=== PATIENT | male | born 1945 | race Caucasian/White ===

== ENCOUNTER 2017-11-26 07:13 | Day surgery (SDC) | payer OTHER ==
[2017-11-26] MEDS ORDERED: TETRACAINE 0.5% OPHTH 1 DOSE AFFEYE ONE ×4 (07:30→10:10)
[2017-11-26] MEDS ORDERED: VIGAMOX 0.5% OPHTH 1 DOSE AFFEYE ONE ×5 (07:35→10:25)
[2017-11-26] MEDS ORDERED: NS 500 ML IV 500 ML IV ONE (07:44)
[2017-11-26] MEDS ORDERED: PROLENSA OPHTH 1 DOSE AFFEYE ONE (07:46)
[2017-11-26] MEDS ORDERED: ALPHAGAN-P OPHTH 1 DOSE AFFEYE ONE (07:47)
[2017-11-26] MEDS ORDERED: AK-DILATE 2.5% OPHTH 1 DOSE OP ONE ×3 (07:48→07:50)
[2017-11-26] MEDS ORDERED: MYDRIACIL OPHTH 1 DOSE AFFEYE ONE ×3 (07:48→07:50)
[2017-11-26] MEDS ORDERED: CYCLOGYL 1% OPHTH 1 DOSE OP ONE ×3 (07:48→07:50)
[2017-11-26] MEDS ORDERED: BETADINE OPHTH SOLN 5% EACHEYE ONE (09:58)
[2017-11-26] MEDS ORDERED: XYLOCAINE-MPF 1% IJ ONE ×2 (10:07→10:10)
[2017-11-26] MEDS ORDERED: ADRENALINE CHL INJ IJ ONE ×2 (10:07→10:10)
[2017-11-26] MEDS ORDERED: DUOVISC IO ONE ×2 (10:09→10:10)
[2017-11-26] MEDS ORDERED: BSS OPHTH (PLAIN) 500 ML with VANCOMYCIN HCL 500 MG VIAL 25 MG, ADRENALINE CHL INJ 1 MG IR ONE ×3 (10:10)
[2017-11-26 10:50] VITALS: BP 180/83
[2017-11-26] MEDS ORDERED: VERSED ONE (15:35)
== END 2017-11-26 10:45 | disposition home or self-care (01) ==
LOC: SURG1 07:13
PROVIDERS: ATTEND Ophthalmology
PROC: 08DJ3ZZ Extraction of Right Lens, Percutaneous Approach (ICD-10-PCS; principal; 2017-11-26 09:45)
PROC: 08RJ3JZ Replacement of Right Lens with Synthetic Substitute, Percutaneous Approach (ICD-10-PCS; principal; 2017-11-26 09:45)
DX: H25.11 Age-related nuclear cataract, right eye (principal); H25.011 Cortical age-related cataract, right eye; H52.221 Regular astigmatism, right eye
CPT/HCPCS: 99100; A9270; A4217; J0170; J2250; J3370

== ENCOUNTER 2017-12-10 09:07 | Day surgery (SDC) | payer OTHER ==
[~2017-12-10 09:07] MED LIST: NS 1000 ML 1,000 ML ONE
[2017-12-10] MEDS ORDERED: TETRACAINE 0.5% OPHTH 1 DOSE AFFEYE ONE ×4 (09:15→12:57)
[2017-12-10] MEDS ORDERED: VIGAMOX 0.5% OPHTH 1 DOSE AFFEYE ONE ×5 (09:20→13:15)
[2017-12-10] MEDS ORDERED: PROLENSA OPHTH 1 DOSE AFFEYE ONE (09:31)
[2017-12-10] MEDS ORDERED: ALPHAGAN-P OPHTH 1 DOSE AFFEYE ONE (09:32)
[2017-12-10] MEDS ORDERED: CYCLOGYL 1% OPHTH 1 DOSE OP ONE ×3 (09:33→09:35)
[2017-12-10] MEDS ORDERED: MYDRIACIL OPHTH 1 DOSE AFFEYE ONE ×3 (09:33→09:35)
[2017-12-10] MEDS ORDERED: AK-DILATE 2.5% OPHTH 1 DOSE OP ONE ×3 (09:33→09:35)
[2017-12-10] MEDS ORDERED: XYLOCAINE-MPF 1% IJ ONE ×2 (12:47→12:57)
[2017-12-10] MEDS ORDERED: BETADINE OPHTH SOLN 5% EACHEYE ONE (12:47)
[2017-12-10] MEDS ORDERED: DUOVISC IO ONE ×2 (12:47→12:57)
[2017-12-10] MEDS ORDERED: ADRENALINE CHL INJ IJ ONE ×2 (12:47→12:57)
[2017-12-10] MEDS ORDERED: BSS OPHTH (PLAIN) 500 ML with VANCOMYCIN HCL 500 MG VIAL 25 MG, ADRENALINE CHL INJ 1 MG IR ONE ×6 (12:48)
[2017-12-10] MEDS ORDERED: VERSED ONE (13:43)
[2017-12-10 15:22] VITALS: BP 166/84
== END 2017-12-10 13:40 | disposition home or self-care (01) ==
LOC: SURG1 09:07
PROVIDERS: ATTEND Ophthalmology
PROC: 08DK3ZZ Extraction of Left Lens, Percutaneous Approach (ICD-10-PCS; principal; 2017-12-10 15:30)
PROC: 08RK3JZ Replacement of Left Lens with Synthetic Substitute, Percutaneous Approach (ICD-10-PCS; principal; 2017-12-10 15:30)
DX: H25.12 Age-related nuclear cataract, left eye (principal); H25.012 Cortical age-related cataract, left eye; H52.222 Regular astigmatism, left eye
CPT/HCPCS: 99100; A9270; A4217; J0170; J2250; J3370